=== PATIENT | female | born 1990 | race Caucasian/White ===

== ENCOUNTER 2020-05-27 13:54 | Inpatient (IN) ==
[2020-05-27] MEDS ORDERED: Piperacillin/Tazobactam 4.5 GM in Water for inj. (sterile) 20 ML IVP ONE (14:09)
[2020-05-27] MEDS ORDERED: Vancomycin 1,000 MG VIAL IVPB ONE (14:09)
[2020-05-27] MEDS ORDERED: 0.9 % Sodium Chloride 1,000 ML IVC ONE (14:12)
[2020-05-27] MEDS ORDERED: Piperacillin/Tazobactam 3.375 GM in 0.9 % Sodium Chloride Mini Bag 100 ML IVPB ONE (14:17)
[2020-05-27] MEDS ORDERED: Bupivacaine-MPF 0.25% 10 ML VIAL INFILT ONE (14:25)
[2020-05-27] MEDS ORDERED: Ibuprofen 800 MG TABLET PO ONE (14:25)
[2020-05-27 14:43] LABS: Basophils # 0.1 K/mcL (0.0-0.2); Basophils % 0.6 %; Hematocrit 39.1 % (35.3-44.9); Hemoglobin 12.7 g/dL (11.5-15.4); Immature Granulocytes % 0.4 % (0-4); Lymphocytes # 1.8 K/mcL (0.6-4.6); Lymphocytes % 21.7 %; Mean Corpuscular HGB Conc 32.5 g/dL (31.6-35.5); Mean Corpuscular Hemoglobin 30.2 pg (28.0-33.3); Mean Corpuscular Volume 93.1 fL (83.0-100.0); Mean Platelet Volume 9.6 fL (9.4-12.4); Monocytes % 12.4 %; Neutrophils # 5.4 K/mcL (1.6-8.9); Platelet Count 291 K/mcL (140-400); Prothrombin Time 11.3 Seconds (9.4-12.1); Red Cell Distribution Width 12.3 % (11.5-14.5); Segmented Neutrophils % 64.9 %; White Blood Count 8.3 K/mcL (4.3-11.1)
[2020-05-27] MEDS ORDERED: Vancomycin 1,500 MG/265 ML IV.SOLN IVPB ONE ×2 (14:50→15:00)
[2020-05-27 15:04] LABS: Alanine Aminotransferase 31 Units/L (7-52); Albumin 3.8 g/dL (3.5-5.7); Albumin/Globulin Ratio 1.2 (1.1-2.2); Alkaline Phosphatase 73 Units/L (34-104); Aspartate Amino Transferase 26 Units/L (13-39); BUN/Creatinine Ratio 27 (6-26); Bilirubin,Direct 0.1 mg/dL (0.0-0.2); Bilirubin,Indirect 0.3 mg/dL (0.0-1.0); Bilirubin,Total 0.4 mg/dL (0.3-1.0); Blood Urea Nitrogen 16 mg/dL (6-20); Calcium 9.9 mg/dL (8.6-10.3); Carbon Dioxide 29 mEq/L (23-29); Chloride 102 mEq/L (98-107); Globulin 3.3 g/dL (2.4-3.5); Glucose 97 mg/dL (70-105); Osmolality,Calculated 285 (280-300); Potassium 4.5 mEq/L (3.5-5.1); Sodium 137 mEq/L (136-145); Total Protein 7.1 g/dL (6.4-8.9); Troponin I < 0.03 ng/mL (< 0.04); eGFR For African Americans > 60 (> 60); eGFR For Non-African Americans > 60 (> 60)
[2020-05-27] MEDS ORDERED: Ondansetron 4 MG/2 ML VIAL IVP PRN (16:07)
[2020-05-27] MEDS ORDERED: Acetaminophen 325 MG TABLET PO PRN (16:07)
[2020-05-27] MEDS ORDERED: Naloxone 0.4 MG/ML INJ IVP PRN (16:07)
[2020-05-27 16:20] LABS: SARS-CoV-2 Not Detected (Not Detect)
[2020-05-27 16:21] LABS: Adenovirus Not Detected (Not Detect); Bordetella Pertussis Not Detected (Not Detect); Chlamydophila pneumoniae Not Detected (Not Detect); Coronavirus 229E Not Detected (Not Detect); Coronavirus HKU1 Not Detected (Not Detect); Coronavirus NL63 Not Detected (Not Detect); Coronavirus OC43 Not Detected (Not Detect); Human Metapneumovirus Not Detected (Not Detect); Human Rhinovirus/Enterovirus Not Detected (Not Detect); Influenza A Subtype 2009 H1 Not Detected (Not Detect); Influenza B Not Detected (Not Detect); Mycoplasma pneumoniae Not Detected (Not Detect); Parainfluenza Virus 1 Not Detected (Not Detect); Parainfluenza Virus 2 Not Detected (Not Detect); Parainfluenza Virus 3 Not Detected (Not Detect); Parainfluenza Virus 4 Not Detected (Not Detect); Respiratory Syncytial Virus Not Detected (Not Detect)
[2020-05-27 16:30] LABS: Bacteria,Urine Few per hpf (None-Few); Bilirubin,Urine Negative (Negative); Blood,Urine Negative (Negative); Clarity,Urine Turbid (Clear); Color,Urine Light-Yellow (Yellow); Glucose,Urine (UA) Normal (Normal); Ketones,Urine Negative (Negative); Leukocyte Esterase,Urine Small (Negative); Mucus,Urine Few per lpf (None-Few); Nitrite,Urine Negative (Negative); PH,Urine 6.5 pH Units (5.0-8.0); Protein,Urine Trace mg/dL (Neg-Trace); RBC,Urine 0-3 per hpf (0-3); Specific Gravity,Urine 1.025 (1.010-1.025); Squamous Epithelial Cell,Urine Moderate per hpf (None-Few); Urobilinogen,Urine Normal (Normal)
[2020-05-27 16:34] LABS: Amphetamine Screen,Urine Negative ng/mL (Cutoff=1000); Barbiturate Screen,Urine Negative ng/mL (Cutoff=200); Benzodiazepines Screen,Urine Negative ng/mL (Cutoff=200); Cannabinoid Screen,Urine Negative ng/mL (Cutoff = 50); Cocaine Screen,Urine Negative ng/mL (Cutoff= 300); Opiate Screen,Urine Negative ng/mL (Cutoff=300); Phencyclidine Screen,Urine Negative ng/mL (Cutoff=25)
[2020-05-27] MEDS: *HR* Heparin 5,000 UNIT/ML VIAL SQ SCH (21:08)
[2020-05-27] MEDS: Piperacillin/Tazobactam 3.375 GM in 0.9 % Sodium Chloride Mini Bag 100 ML IVPB SCH (23:27)
[2020-05-27] MEDS: *HR* HYDROcodone/Acet 5/325 mg TABLET PO PRN (23:27)
[2020-05-28] MEDS: *HR* Heparin 5,000 UNIT/ML VIAL SQ SCH ×3 (05:45→22:10)
[2020-05-28 06:15] LABS: Basophils # 0.1 K/mcL (0.0-0.2); Basophils % 0.8 %; Eosinophils # 0.2 K/mcL (0.0-0.6); Eosinophils % 2.3 %; Hematocrit 36.3 % (35.3-44.9); Hemoglobin 11.4 g/dL (11.5-15.4); Immature Granulocytes % 0.5 % (0-4); Lymphocytes # 2.4 K/mcL (0.6-4.6); Lymphocytes % 32.5 %; Mean Corpuscular HGB Conc 31.4 g/dL (31.6-35.5); Mean Corpuscular Hemoglobin 29.5 pg (28.0-33.3); Mean Corpuscular Volume 93.8 fL (83.0-100.0); Mean Platelet Volume 9.7 fL (9.4-12.4); Monocytes # 0.7 K/mcL (0.0-1.3); Platelet Count 230 K/mcL (140-400); Red Blood Count 3.87 M/mcL (3.82-4.97); Red Cell Distribution Width 12.3 % (11.5-14.5); Segmented Neutrophils % 53.9 %; White Blood Count 7.4 K/mcL (4.3-11.1)
[2020-05-28 06:35] LABS: BUN/Creatinine Ratio 29 (6-26); Blood Urea Nitrogen 17 mg/dL (6-20); Calcium 8.9 mg/dL (8.6-10.3); Carbon Dioxide 27 mEq/L (23-29); Chloride 106 mEq/L (98-107); Glucose 83 mg/dL (70-105); Magnesium 1.7 mg/dL (1.6-2.6); Osmolality,Calculated 287 (280-300); Potassium 4.5 mEq/L (3.5-5.1); Sodium 138 mEq/L (136-145); eGFR For African Americans > 60 (> 60); eGFR For Non-African Americans > 60 (> 60)
[2020-05-28] MEDS: *HR* HYDROcodone/Acet 5/325 mg TABLET PO PRN (06:49)
[2020-05-28] MEDS ORDERED: Nicotine 14 MG PATCH.TD24 TD SCH (09:00)
[2020-05-28] MEDS: Piperacillin/Tazobactam 3.375 GM in 0.9 % Sodium Chloride Mini Bag 100 ML IVPB SCH ×3 (09:31→23:29)
[2020-05-28] MEDS ORDERED: *HR* HYDROcodone/Acet 5/325 mg TABLET PO PRN (12:11)
[2020-05-28] MEDS ORDERED: Lidocaine/EPI 1:200k 1% PF 10 ML VIAL ONE (16:23)
[2020-05-28] MEDS ORDERED: *HR* FentaNYL (PF) 100 MCG/2 ML VIAL ONE (17:18)
[2020-05-28] MEDS ORDERED: Ondansetron 4 MG/2 ML VIAL ONE (17:18)
[2020-05-28] MEDS ORDERED: Lidocaine -MPF 2% 2 ML VIAL ONE (17:18)
[2020-05-28] MEDS ORDERED: Dexamethasone 4 MG/ML VIAL ONE (17:18)
[2020-05-28] MEDS ORDERED: *HR* Propofol 200 MG/20 ML VIAL IVP ONE (17:18)
[2020-05-28] MEDS ORDERED: *HR* Midazolam HCl 2 MG/2 ML VIAL ONE (17:18)
[2020-05-28] MEDS ORDERED: *HR* FentaNYL (PF) 100 MCG/2 ML VIAL IVP PRN ×2 (17:56→20:11)
[2020-05-28] MEDS ORDERED: Naloxone 0.4 MG/ML INJ IVP PRN ×3 (17:57→20:11)
[2020-05-28] MEDS ORDERED: Ondansetron 4 MG/2 ML VIAL IVP ONE ×2 (17:57→20:11)
[2020-05-28] MEDS ORDERED: Ringers Solution, Lactated 1,000 ML IVC SCH ×2 (18:00→20:11)
[2020-05-28] MEDS ORDERED: Ketorolac 30 MG/ML VIAL ONE (18:55)
[2020-05-28] MEDS: *HR* HYDROmorphone PF 0.5 MG/0.5 ML SYRINGE IVP PRN ×4 (19:25→19:41)
[2020-05-28] MEDS ORDERED: Acetaminophen 325 MG TABLET PO PRN (20:11)
[2020-05-28] MEDS ORDERED: Ondansetron 4 MG/2 ML VIAL IVP PRN (20:11)
[2020-05-29 02:52] LABS: Basophils % 0.5 %; Hematocrit 36.8 % (35.3-44.9); Hemoglobin 11.9 g/dL (11.5-15.4); Immature Granulocytes % 0.3 % (0-4); Mean Corpuscular HGB Conc 32.3 g/dL (31.6-35.5); Mean Corpuscular Hemoglobin 30.1 pg (28.0-33.3); Mean Corpuscular Volume 92.9 fL (83.0-100.0); Mean Platelet Volume 9.8 fL (9.4-12.4); Monocytes # 0.3 K/mcL (0.0-1.3); Monocytes % 4.5 %; Neutrophils # 4.4 K/mcL (1.6-8.9); Platelet Count 273 K/mcL (140-400); Red Blood Count 3.96 M/mcL (3.82-4.97); Red Cell Distribution Width 11.9 % (11.5-14.5); Segmented Neutrophils % 76.7 %; White Blood Count 5.7 K/mcL (4.3-11.1)
[2020-05-29 03:12] LABS: BUN/Creatinine Ratio 26 (6-26); Blood Urea Nitrogen 15 mg/dL (6-20); Calcium 8.9 mg/dL (8.6-10.3); Carbon Dioxide 27 mEq/L (23-29); Chloride 102 mEq/L (98-107); Glucose 164 mg/dL (70-105); Magnesium 1.8 mg/dL (1.6-2.6); Osmolality,Calculated 288 (280-300); Potassium 3.9 mEq/L (3.5-5.1); Sodium 137 mEq/L (136-145); eGFR For African Americans > 60 (> 60); eGFR For Non-African Americans > 60 (> 60)
[2020-05-29] MEDS: Vancomycin 1,500 MG/265 ML IV.SOLN IVPB SCH ×2 (04:03→17:02)
[2020-05-29] MEDS: *HR* Heparin 5,000 UNIT/ML VIAL SQ SCH ×3 (05:15→22:11)
[2020-05-29] MEDS: Piperacillin/Tazobactam 3.375 GM in 0.9 % Sodium Chloride Mini Bag 100 ML IVPB SCH ×3 (09:59→23:09)
[2020-05-29] MEDS: Nicotine 14 MG PATCH.TD24 TD SCH (10:00)
[2020-05-29] MEDS: *HR* HYDROcodone/Acet 5/325 mg TABLET PO PRN ×2 (15:46→22:10)
[2020-05-30] MEDS: Vancomycin 1,500 MG/265 ML IV.SOLN IVPB SCH ×2 (03:07→16:35)
[2020-05-30] MEDS: *HR* Heparin 5,000 UNIT/ML VIAL SQ SCH ×3 (05:43→20:56)
[2020-05-30 06:48] LABS: Basophils # 0.1 K/mcL (0.0-0.2); Basophils % 1.2 %; Eosinophils # 0.1 K/mcL (0.0-0.6); Eosinophils % 1.9 %; Immature Granulocytes % 0.7 % (0-4); Lymphocytes # 2.8 K/mcL (0.6-4.6); Lymphocytes % 48.5 %; Mean Corpuscular HGB Conc 32.4 g/dL (31.6-35.5); Mean Corpuscular Hemoglobin 30.2 pg (28.0-33.3); Mean Corpuscular Volume 93.4 fL (83.0-100.0); Mean Platelet Volume 9.7 fL (9.4-12.4); Monocytes # 0.6 K/mcL (0.0-1.3); Neutrophils # 2.2 K/mcL (1.6-8.9); Platelet Count 236 K/mcL (140-400); Red Blood Count 3.64 M/mcL (3.82-4.97); Red Cell Distribution Width 12.1 % (11.5-14.5); Segmented Neutrophils % 37.7 %; White Blood Count 5.8 K/mcL (4.3-11.1)
[2020-05-30 07:09] LABS: BUN/Creatinine Ratio 29 (6-26); Blood Urea Nitrogen 16 mg/dL (6-20); Calcium 8.6 mg/dL (8.6-10.3); Carbon Dioxide 27 mEq/L (23-29); Chloride 105 mEq/L (98-107); Glucose 88 mg/dL (70-105); Magnesium 1.6 mg/dL (1.6-2.6); Osmolality,Calculated 285 (280-300); Potassium 3.9 mEq/L (3.5-5.1); Sodium 137 mEq/L (136-145); eGFR For African Americans > 60 (> 60); eGFR For Non-African Americans > 60 (> 60)
[2020-05-30] MEDS: Piperacillin/Tazobactam 3.375 GM in 0.9 % Sodium Chloride Mini Bag 100 ML IVPB SCH (08:47)
[2020-05-30] MEDS: Nicotine 14 MG PATCH.TD24 TD SCH (08:48)
[2020-05-30] MEDS: *HR* HYDROcodone/Acet 5/325 mg TABLET PO PRN ×2 (13:46→21:28)
[2020-05-31] MEDS: Vancomycin 1,500 MG/265 ML IV.SOLN IVPB SCH ×2 (05:34→15:12)
[2020-05-31] MEDS: *HR* Heparin 5,000 UNIT/ML VIAL SQ SCH ×3 (05:38→21:23)
[2020-05-31] MEDS: Nicotine 14 MG PATCH.TD24 TD SCH (08:39)
[2020-05-31 11:23] LABS: Basophils # 0.1 K/mcL (0.0-0.2); Basophils % 1.1 %; Eosinophils % 0.6 %; Hematocrit 38.3 % (35.3-44.9); Hemoglobin 12.3 g/dL (11.5-15.4); Immature Granulocytes % 1.5 % (0-4); Lymphocytes # 1.6 K/mcL (0.6-4.6); Lymphocytes % 29.6 %; Mean Corpuscular HGB Conc 32.1 g/dL (31.6-35.5); Mean Corpuscular Hemoglobin 29.9 pg (28.0-33.3); Mean Corpuscular Volume 93.2 fL (83.0-100.0); Mean Platelet Volume 9.7 fL (9.4-12.4); Monocytes # 0.5 K/mcL (0.0-1.3); Monocytes % 9.9 %; Neutrophils # 3.1 K/mcL (1.6-8.9); Platelet Count 267 K/mcL (140-400); Red Blood Count 4.11 M/mcL (3.82-4.97); Red Cell Distribution Width 12.3 % (11.5-14.5); Segmented Neutrophils % 57.3 %; White Blood Count 5.3 K/mcL (4.3-11.1)
[2020-05-31 11:43] LABS: BUN/Creatinine Ratio 24 (6-26); Blood Urea Nitrogen 14 mg/dL (6-20); Calcium 9.5 mg/dL (8.6-10.3); Carbon Dioxide 31 mEq/L (23-29); Chloride 102 mEq/L (98-107); Glucose 99 mg/dL (70-105); Magnesium 1.7 mg/dL (1.6-2.6); Osmolality,Calculated 285 (280-300); Potassium 4.2 mEq/L (3.5-5.1); Sodium 137 mEq/L (136-145); eGFR For African Americans > 60 (> 60); eGFR For Non-African Americans > 60 (> 60)
[2020-05-31] MEDS: *HR* HYDROcodone/Acet 5/325 mg TABLET PO PRN ×2 (12:42→19:34)
[2020-06-01] MEDS: Vancomycin 1,500 MG/265 ML IV.SOLN IVPB SCH (04:39)
[2020-06-01] MEDS: *HR* Heparin 5,000 UNIT/ML VIAL SQ SCH (06:12)
[2020-06-01 06:27] LABS: Basophils # 0.1 K/mcL (0.0-0.2); Basophils % 1.2 %; Hematocrit 35.8 % (35.3-44.9); Hemoglobin 11.4 g/dL (11.5-15.4); Immature Granulocytes % 4.3 % (0-4); Lymphocytes # 2.5 K/mcL (0.6-4.6); Lymphocytes % 33.8 %; Mean Corpuscular HGB Conc 31.8 g/dL (31.6-35.5); Mean Corpuscular Volume 94.2 fL (83.0-100.0); Mean Platelet Volume 9.6 fL (9.4-12.4); Monocytes # 0.9 K/mcL (0.0-1.3); Monocytes % 11.8 %; Neutrophils # 3.6 K/mcL (1.6-8.9); Platelet Count 257 K/mcL (140-400); Red Cell Distribution Width 12.3 % (11.5-14.5); Segmented Neutrophils % 48.9 %; White Blood Count 7.3 K/mcL (4.3-11.1)
[2020-06-01 06:47] LABS: BUN/Creatinine Ratio 26 (6-26); Blood Urea Nitrogen 17 mg/dL (6-20); Calcium 8.7 mg/dL (8.6-10.3); Carbon Dioxide 31 mEq/L (23-29); Chloride 103 mEq/L (98-107); Glucose 91 mg/dL (70-105); Magnesium 1.6 mg/dL (1.6-2.6); Osmolality,Calculated 287 (280-300); Potassium 3.9 mEq/L (3.5-5.1); Sodium 138 mEq/L (136-145); eGFR For African Americans > 60 (> 60); eGFR For Non-African Americans > 60 (> 60)
[2020-06-01 07:50] VITALS: BP 109/73
[2020-06-01] MEDS: Doxycycline 100 MG CAPSULE PO SCH ×2 (08:11→09:28)
[2020-06-01] MEDS: Nicotine 14 MG PATCH.TD24 TD SCH (08:11)
[2020-06-01] MEDS: *HR* HYDROcodone/Acet 5/325 mg TABLET PO PRN (10:11)
== END 2020-06-01 11:43 | disposition home or self-care (01) | DRG 364 ==
LOC: SUATTDRO → 3ANU 13:54 → EMEROOARM 13:54 → SUATTDRO 16:34 → 3ANU 17:35
PROVIDERS: ADMIT Pharmacist; ATTEND Pharmacist

== ENCOUNTER 2020-06-04 16:22 | Observation (INO) ==
[2020-06-04] MEDS ORDERED: 0.9 % Sodium Chloride 1,000 ML IV ONE (17:53)
[2020-06-04] MEDS ORDERED: Piperacillin/Tazobactam 3.375 GM in 0.9 % Sodium Chloride Mini Bag 100 ML IVPB ONE (17:54)
[2020-06-04] MEDS ORDERED: Ziprasidone 20 MG in Water for inj. (sterile) 1 ML IM ONE (18:03)
[2020-06-04] MEDS ORDERED: *HR* LORazepam 2 MG/ML VIAL ONE (18:27)
[2020-06-04] MEDS ORDERED: *HR* LORazepam 2 MG/ML VIAL IM ONE (18:27)
[2020-06-04] MEDS ORDERED: *HR* LORazepam 2 MG/ML VIAL IM PRN (18:33)
[2020-06-04] MEDS ORDERED: Naloxone 0.4 MG/ML INJ IVP PRN (19:48)
[2020-06-04] MEDS: 0.9 % Sodium Chloride 1,000 ML IVC SCH (23:30)
[2020-06-05] MEDS: *HR* LORazepam 2 MG/ML VIAL IVP PRN ×2 (02:45→10:14)
[2020-06-05 05:04] LABS: Basophils # 0.1 K/mcL (0.0-0.2); Basophils % 1.1 %; Eosinophils % 0.1 %; Hematocrit 36.6 % (35.3-44.9); Hemoglobin 11.4 g/dL (11.5-15.4); Immature Granulocytes % 0.6 % (0-4); Lymphocytes # 1.9 K/mcL (0.6-4.6); Lymphocytes % 26.7 %; Mean Corpuscular HGB Conc 31.1 g/dL (31.6-35.5); Mean Corpuscular Hemoglobin 29.4 pg (28.0-33.3); Mean Corpuscular Volume 94.3 fL (83.0-100.0); Mean Platelet Volume 9.4 fL (9.4-12.4); Monocytes # 0.9 K/mcL (0.0-1.3); Monocytes % 12.1 %; Neutrophils # 4.2 K/mcL (1.6-8.9); Platelet Count 334 K/mcL (140-400); Red Blood Count 3.88 M/mcL (3.82-4.97); Red Cell Distribution Width 13.2 % (11.5-14.5); Segmented Neutrophils % 59.4 %
[2020-06-05 05:30] LABS: Alanine Aminotransferase 89 Units/L (7-52); Albumin 3.9 g/dL (3.5-5.7); Albumin/Globulin Ratio 1.4 (1.1-2.2); Alkaline Phosphatase 54 Units/L (34-104); Aspartate Amino Transferase 95 Units/L (13-39); BUN/Creatinine Ratio 32 (6-26); Bilirubin,Total 1.2 mg/dL (0.3-1.0); Blood Urea Nitrogen 26 mg/dL (6-20); Calcium 9.1 mg/dL (8.6-10.3); Carbon Dioxide 23 mEq/L (23-29); Chloride 107 mEq/L (98-107); Globulin 2.8 g/dL (2.4-3.5); Glucose 98 mg/dL (70-105); Osmolality,Calculated 295 (280-300); Potassium 3.5 mEq/L (3.5-5.1); Sodium 140 mEq/L (136-145); Total Protein 6.7 g/dL (6.4-8.9); eGFR For African Americans > 60 (> 60); eGFR For Non-African Americans > 60 (> 60)
[2020-06-05] MEDS ORDERED: *HR* LORazepam 2 MG/ML VIAL IVP ONE (06:16)
[2020-06-05] MEDS: Vancomycin 1,500 MG/265 ML IV.SOLN IVPB SCH ×2 (06:20→16:43)
[2020-06-05] MEDS: 0.9 % Sodium Chloride 1,000 ML IVC SCH ×2 (06:32→16:43)
[2020-06-05] MEDS: Piperacillin/Tazobactam 3.375 GM in 0.9 % Sodium Chloride Mini Bag 100 ML IVPB SCH ×2 (07:40→15:35)
[2020-06-05] MEDS ORDERED: Ketorolac 15 MG/ML VIAL IVP PRN (08:17)
[2020-06-05] MEDS ORDERED: Ziprasidone 10 MG in Water for inj. (sterile) 0.5 ML IM ONE (10:30)
[2020-06-05] MEDS ORDERED: Ziprasidone 20 MG in Water for inj. (sterile) 1 ML IM PRN (15:58)
[2020-06-05] MEDS: *HR* LORazepam 2 MG/ML VIAL IVP SCH ×2 (16:42→20:55)
[2020-06-05] MEDS ORDERED: QUEtiapine Fumarate 100 MG TABLET PO SCH (21:00)
[2020-06-06] MEDS: 0.9 % Sodium Chloride 1,000 ML IVC SCH ×2 (00:37→08:47)
[2020-06-06] MEDS: Piperacillin/Tazobactam 3.375 GM in 0.9 % Sodium Chloride Mini Bag 100 ML IVPB SCH ×3 (00:48→16:06)
[2020-06-06 06:05] LABS: Hematocrit 33.6 % (35.3-44.9); Hemoglobin 10.6 g/dL (11.5-15.4); Mean Corpuscular HGB Conc 31.5 g/dL (31.6-35.5); Mean Corpuscular Hemoglobin 29.7 pg (28.0-33.3); Mean Corpuscular Volume 94.1 fL (83.0-100.0); Mean Platelet Volume 9.7 fL (9.4-12.4); Platelet Count 282 K/mcL (140-400); Red Blood Count 3.57 M/mcL (3.82-4.97); White Blood Count 4.7 K/mcL (4.3-11.1)
[2020-06-06 06:26] LABS: BUN/Creatinine Ratio 20 (6-26); Blood Urea Nitrogen 13 mg/dL (6-20); Calcium 8.5 mg/dL (8.6-10.3); Carbon Dioxide 24 mEq/L (23-29); Chloride 109 mEq/L (98-107); Glucose 91 mg/dL (70-105); Osmolality,Calculated 288 (280-300); Potassium 3.7 mEq/L (3.5-5.1); Sodium 139 mEq/L (136-145); Vancomycin,Trough 6 mcg/mL (5-10); eGFR For African Americans > 60 (> 60); eGFR For Non-African Americans > 60 (> 60)
[2020-06-06] MEDS: Vancomycin 1,500 MG/265 ML IV.SOLN IVPB SCH (06:39)
[2020-06-06] MEDS: *HR* LORazepam 2 MG/ML VIAL IVP SCH ×2 (07:59→14:27)
[2020-06-06] MEDS: Vancomycin 1,250 MG/262.5 ML IV.SOLN IVPB SCH ×2 (09:54→16:05)
[2020-06-06 15:32] VITALS: BP 125/82
== END 2020-06-06 18:18 | disposition left against medical advice (07) ==
LOC: 3ANU 16:22 → EMEROOARM 16:22 → SUATTDRO 18:28 → 3ANU 20:12
PROVIDERS: ADMIT Internal Medicine; ATTEND Internal Medicine

== ENCOUNTER 2020-06-09 03:00 | Inpatient (IN) ==
[2020-06-09] MEDS ORDERED: Ziprasidone 20 MG in Water for inj. (sterile) 1 ML IM ONE (03:04)
[2020-06-09] MEDS ORDERED: 0.9 % Sodium Chloride 1,000 ML ONE (03:42)
[2020-06-09 04:17] LABS: Acetaminophen < 10 mcg/mL (10-20); Ethanol < 10 mg/dL (Less than 10); Salicylate < 2.5 mg/dL (15.0-30.0)
[2020-06-09] MEDS ORDERED: Naloxone 0.4 MG/ML INJ IVP PRN (04:53)
[2020-06-09] MEDS ORDERED: *HR* Promethazine 25 MG/ML VIAL IVP PRN (04:53)
[2020-06-09] MEDS ORDERED: 0.9 % Sodium Chloride 1,000 ML IVC SCH (05:00)
[2020-06-09 05:49] LABS: Basophils % 0.5 %; Hematocrit 35.5 % (35.3-44.9); Hemoglobin 11.5 g/dL (11.5-15.4); Immature Granulocytes % 0.3 % (0-4); Lymphocytes # 1.8 K/mcL (0.6-4.6); Mean Corpuscular HGB Conc 32.4 g/dL (31.6-35.5); Mean Corpuscular Hemoglobin 30.5 pg (28.0-33.3); Mean Corpuscular Volume 94.2 fL (83.0-100.0); Mean Platelet Volume 9.5 fL (9.4-12.4); Monocytes # 0.6 K/mcL (0.0-1.3); Monocytes % 7.3 %; Neutrophils # 5.3 K/mcL (1.6-8.9); Platelet Count 329 K/mcL (140-400); Red Blood Count 3.77 M/mcL (3.82-4.97); Segmented Neutrophils % 68.9 %; White Blood Count 7.7 K/mcL (4.3-11.1)
[2020-06-09 05:56] LABS: Prothrombin Time 11.7 Seconds (9.4-12.1)
[2020-06-09 06:09] LABS: Alanine Aminotransferase 49 Units/L (7-52); Albumin 4.1 g/dL (3.5-5.7); Albumin/Globulin Ratio 1.5 (1.1-2.2); Alkaline Phosphatase 66 Units/L (34-104); Aspartate Amino Transferase 38 Units/L (13-39); BUN/Creatinine Ratio 30 (6-26); Bilirubin,Total 0.9 mg/dL (0.3-1.0); Blood Urea Nitrogen 16 mg/dL (6-20); Calcium 9.6 mg/dL (8.6-10.3); Carbon Dioxide 24 mEq/L (23-29); Chloride 107 mEq/L (98-107); Globulin 2.8 g/dL (2.4-3.5); Glucose 92 mg/dL (70-105); Magnesium 1.9 mg/dL (1.6-2.6); Osmolality,Calculated 291 (280-300); Phosphorous 3.7 mg/dL (2.7-4.5); Potassium 3.1 mEq/L (3.5-5.1); Sodium 140 mEq/L (136-145); Total Protein 6.9 g/dL (6.4-8.9); eGFR For African Americans > 60 (> 60); eGFR For Non-African Americans > 60 (> 60)
[2020-06-09] MEDS: Vancomycin 1,250 MG/262.5 ML IV.SOLN IVPB SCH ×2 (08:01→15:16)
[2020-06-09] MEDS: Piperacillin/Tazobactam 3.375 GM in 0.9 % Sodium Chloride Mini Bag 100 ML IVPB SCH ×3 (08:01→23:47)
[2020-06-09] MEDS: Acetaminophen 325 MG TABLET PO PRN (12:10)
[2020-06-09 12:55] LABS: Amphetamine Screen,Urine Positive ng/mL (Cutoff=1000); Barbiturate Screen,Urine Negative ng/mL (Cutoff=200); Benzodiazepines Screen,Urine Negative ng/mL (Cutoff=200); Cannabinoid Screen,Urine Positive ng/mL (Cutoff = 50); Cocaine Screen,Urine Negative ng/mL (Cutoff= 300); Opiate Screen,Urine Negative ng/mL (Cutoff=300); Phencyclidine Screen,Urine Negative ng/mL (Cutoff=25)
[2020-06-09] MEDS ORDERED: *HR* LORazepam 2 MG/ML VIAL IVP ONE ×2 (13:24→18:09)
[2020-06-09] MEDS: Potassium Chloride Elixir 20 MEQ/15 ML UDC PO ONE ×2 (13:35→13:40)
[2020-06-09] MEDS ORDERED: Divalproex (12 HR) 500 MG TABLET PO ONE (14:33)
[2020-06-09] MEDS: Nicotine 21 MG PATCH.TD24 TD SCH (16:58)
[2020-06-09] MEDS: risperiDONE 1 MG TABLET PO SCH (17:11)
[2020-06-10] MEDS: Vancomycin 1,500 MG/265 ML IV.SOLN IVPB SCH ×4 (01:08→23:02)
[2020-06-10] MEDS ORDERED: *HR* LORazepam 2 MG/ML VIAL IVP ONE ×2 (08:42→14:03)
[2020-06-10] MEDS: Vancomycin 1,250 MG/262.5 ML IV.SOLN IVPB SCH (08:45)
[2020-06-10] MEDS: Piperacillin/Tazobactam 3.375 GM in 0.9 % Sodium Chloride Mini Bag 100 ML IVPB SCH ×3 (08:56→23:02)
[2020-06-10] MEDS: Nicotine 21 MG PATCH.TD24 TD SCH (08:58)
[2020-06-10] MEDS: Divalproex (12 HR) 500 MG TABLET PO SCH ×2 (08:58→23:02)
[2020-06-10] MEDS: risperiDONE 1 MG TABLET PO SCH ×2 (08:58→23:02)
[2020-06-10] MEDS ORDERED: Haloperidol Lactate 5 MG/ML VIAL IM ONE (13:55)
[2020-06-10] MEDS ORDERED: *HR* LORazepam 2 MG/ML VIAL ONE (14:04)
[2020-06-10] MEDS ORDERED: Haloperidol Lactate 5 MG/ML VIAL IM PRN (14:47)
[2020-06-10] MEDS ORDERED: *HR* LORazepam 2 MG/ML VIAL IM PRN (14:49)
[2020-06-11 01:12] LABS: Basophils % 0.8 %; Eosinophils # 0.1 K/mcL (0.0-0.6); Hematocrit 32.7 % (35.3-44.9); Hemoglobin 10.3 g/dL (11.5-15.4); Immature Granulocytes % 0.2 % (0-4); Lymphocytes # 2.2 K/mcL (0.6-4.6); Lymphocytes % 43.5 %; Mean Corpuscular HGB Conc 31.5 g/dL (31.6-35.5); Mean Corpuscular Hemoglobin 29.6 pg (28.0-33.3); Monocytes # 0.5 K/mcL (0.0-1.3); Monocytes % 10.1 %; Neutrophils # 2.2 K/mcL (1.6-8.9); Platelet Count 301 K/mcL (140-400); Red Blood Count 3.48 M/mcL (3.82-4.97); Red Cell Distribution Width 13.1 % (11.5-14.5); Segmented Neutrophils % 44.4 %
[2020-06-11 01:33] LABS: BUN/Creatinine Ratio 20 (6-26); Blood Urea Nitrogen 15 mg/dL (6-20); Calcium 8.8 mg/dL (8.6-10.3); Carbon Dioxide 25 mEq/L (23-29); Chloride 105 mEq/L (98-107); Glucose 128 mg/dL (70-105); Osmolality,Calculated 284 (280-300); Potassium 3.7 mEq/L (3.5-5.1); Sodium 136 mEq/L (136-145); eGFR For African Americans > 60 (> 60); eGFR For Non-African Americans > 60 (> 60)
[2020-06-11] MEDS: risperiDONE 1 MG TABLET PO SCH ×2 (10:33→22:15)
[2020-06-11] MEDS: Nicotine 21 MG PATCH.TD24 TD SCH (10:33)
[2020-06-11] MEDS: Divalproex (12 HR) 500 MG TABLET PO SCH ×2 (10:35→22:15)
[2020-06-11] MEDS: Vancomycin 1,500 MG/265 ML IV.SOLN IVPB SCH ×3 (10:36→23:30)
[2020-06-11] MEDS: Piperacillin/Tazobactam 3.375 GM in 0.9 % Sodium Chloride Mini Bag 100 ML IVPB SCH ×3 (10:37→23:31)
[2020-06-12 07:03] LABS: Basophils % 0.5 %; Eosinophils % 0.2 %; Hematocrit 37.4 % (35.3-44.9); Hemoglobin 11.7 g/dL (11.5-15.4); Immature Granulocytes % 0.4 % (0-4); Lymphocytes % 35.4 %; Mean Corpuscular HGB Conc 31.3 g/dL (31.6-35.5); Mean Corpuscular Hemoglobin 29.5 pg (28.0-33.3); Mean Corpuscular Volume 94.2 fL (83.0-100.0); Mean Platelet Volume 9.6 fL (9.4-12.4); Monocytes # 0.6 K/mcL (0.0-1.3); Monocytes % 10.7 %; Platelet Count 305 K/mcL (140-400); Red Blood Count 3.97 M/mcL (3.82-4.97); Red Cell Distribution Width 13.2 % (11.5-14.5); Segmented Neutrophils % 52.8 %; White Blood Count 5.6 K/mcL (4.3-11.1)
[2020-06-12 07:23] LABS: BUN/Creatinine Ratio 25 (6-26); Blood Urea Nitrogen 18 mg/dL (6-20); Calcium 9.7 mg/dL (8.6-10.3); Carbon Dioxide 27 mEq/L (23-29); Chloride 102 mEq/L (98-107); Glucose 101 mg/dL (70-105); Osmolality,Calculated 284 (280-300); Sodium 136 mEq/L (136-145); eGFR For African Americans > 60 (> 60); eGFR For Non-African Americans > 60 (> 60)
[2020-06-12] MEDS: Piperacillin/Tazobactam 3.375 GM in 0.9 % Sodium Chloride Mini Bag 100 ML IVPB SCH (07:30)
[2020-06-12] MEDS: Vancomycin 1,500 MG/265 ML IV.SOLN IVPB SCH (07:30)
[2020-06-12] MEDS: Acetaminophen 325 MG TABLET PO PRN (07:31)
[2020-06-12] MEDS: Nicotine 21 MG PATCH.TD24 TD SCH (08:57)
[2020-06-12] MEDS: risperiDONE 1 MG TABLET PO SCH (08:57)
[2020-06-12] MEDS: Divalproex (12 HR) 500 MG TABLET PO SCH (08:57)
[2020-06-12 11:22] VITALS: BP 119/76
== END 2020-06-12 12:15 | disposition home or self-care (01) | DRG 344 ==
LOC: EMEROOARM 03:00 → 3NENU 03:00 → SUATTDRO 04:11 → 3NENU 04:40
PROVIDERS: ADMIT Family Medicine; ATTEND Family Medicine

== ENCOUNTER 2020-06-13 14:29 | Observation (INO) ==
[2020-06-13] MEDS ORDERED: 0.9 % Sodium Chloride 1,000 ML IVC STA (15:19)
[2020-06-13] MEDS ORDERED: Ondansetron 4 MG/2 ML VIAL IVP PRN (16:39)
[2020-06-13] MEDS ORDERED: Naloxone 0.4 MG/ML INJ IVP PRN (16:39)
[2020-06-13] MEDS ORDERED: *HR* LORazepam 2 MG/ML VIAL IM PRN (17:27)
[2020-06-13] MEDS ORDERED: Haloperidol Lactate 5 MG/ML VIAL IM PRN (17:27)
[2020-06-13 18:40] LABS: Albumin/Globulin Ratio 1.6 (1.1-2.2); Bilirubin,Direct 0.1 mg/dL (0.0-0.2); Bilirubin,Indirect 0.5 mg/dL (0.0-1.0); Bilirubin,Total 0.6 mg/dL (0.3-1.0); Globulin 2.5 g/dL (2.4-3.5); Total Protein 6.5 g/dL (6.4-8.9)
[2020-06-13] MEDS: 0.9 % Sodium Chloride 1,000 ML IVC SCH (18:43)
[2020-06-13 22:07] LABS: Albumin 3.4 g/dL (3.5-5.7); Albumin/Globulin Ratio 1.5 (1.1-2.2); Bilirubin,Direct 0.1 mg/dL (0.0-0.2); Bilirubin,Indirect 0.3 mg/dL (0.0-1.0); Bilirubin,Total 0.4 mg/dL (0.3-1.0); Globulin 2.2 g/dL (2.4-3.5); Total Protein 5.6 g/dL (6.4-8.9)
[2020-06-14] MEDS: Piperacillin/Tazobactam 3.375 GM in 0.9 % Sodium Chloride Mini Bag 100 ML IVPB SCH ×3 (03:44→19:07)
[2020-06-14] MEDS: 0.9 % Sodium Chloride 1,000 ML IVC SCH ×2 (04:00→10:56)
[2020-06-14 09:51] LABS: Basophils % 0.5 %; Hematocrit 32.5 % (35.3-44.9); Hemoglobin 10.2 g/dL (11.5-15.4); Immature Granulocytes % 0.3 % (0-4); Lymphocytes # 1.4 K/mcL (0.6-4.6); Lymphocytes % 34.7 %; Mean Corpuscular HGB Conc 31.4 g/dL (31.6-35.5); Mean Corpuscular Hemoglobin 30.5 pg (28.0-33.3); Mean Corpuscular Volume 97.3 fL (83.0-100.0); Mean Platelet Volume 9.7 fL (9.4-12.4); Monocytes # 0.4 K/mcL (0.0-1.3); Monocytes % 10.1 %; Neutrophils # 2.2 K/mcL (1.6-8.9); Platelet Count 228 K/mcL (140-400); Red Blood Count 3.34 M/mcL (3.82-4.97); Red Cell Distribution Width 13.3 % (11.5-14.5); Segmented Neutrophils % 54.4 %
[2020-06-14 10:09] LABS: Alanine Aminotransferase 23 Units/L (7-52); Albumin/Globulin Ratio 1.5 (1.1-2.2); Alkaline Phosphatase 49 Units/L (34-104); Aspartate Amino Transferase 19 Units/L (13-39); BUN/Creatinine Ratio 12 (6-26); Bilirubin,Direct 0.1 mg/dL (0.0-0.2); Bilirubin,Indirect 0.3 mg/dL (0.0-1.0); Bilirubin,Total 0.4 mg/dL (0.3-1.0); Blood Urea Nitrogen 6 mg/dL (6-20); Calcium 8.6 mg/dL (8.6-10.3); Carbon Dioxide 29 mEq/L (23-29); Chloride 107 mEq/L (98-107); Glucose 120 mg/dL (70-105); Osmolality,Calculated 287 (280-300); Potassium 4.1 mEq/L (3.5-5.1); Sodium 139 mEq/L (136-145); Valproate 35 mcg/mL (50-100); eGFR For African Americans > 60 (> 60); eGFR For Non-African Americans > 60 (> 60)
[2020-06-14] MEDS ORDERED: 0.9 % Sodium Chloride 1,000 ML IVC SCH (10:48)
[2020-06-14] MEDS: Nicotine 21 MG PATCH.TD24 TD SCH (15:48)
[2020-06-15] MEDS ORDERED: Acetaminophen IV 500 MG/50 ML INFUS..BTL IVPB ONE (00:18)
[2020-06-15] MEDS: Piperacillin/Tazobactam 3.375 GM in 0.9 % Sodium Chloride Mini Bag 100 ML IVPB SCH ×2 (04:34→12:19)
[2020-06-15 06:04] LABS: Basophils % 0.4 %; Hemoglobin 10.5 g/dL (11.5-15.4); Immature Granulocytes % 0.2 % (0-4); Lymphocytes # 1.7 K/mcL (0.6-4.6); Lymphocytes % 33.1 %; Mean Corpuscular HGB Conc 31.8 g/dL (31.6-35.5); Mean Corpuscular Hemoglobin 29.8 pg (28.0-33.3); Mean Corpuscular Volume 93.8 fL (83.0-100.0); Mean Platelet Volume 9.5 fL (9.4-12.4); Monocytes # 0.6 K/mcL (0.0-1.3); Monocytes % 12.4 %; Neutrophils # 2.7 K/mcL (1.6-8.9); Platelet Count 237 K/mcL (140-400); Red Blood Count 3.52 M/mcL (3.82-4.97); Red Cell Distribution Width 13.2 % (11.5-14.5); Segmented Neutrophils % 53.9 %
[2020-06-15 06:40] LABS: BUN/Creatinine Ratio 24 (6-26); Blood Urea Nitrogen 16 mg/dL (6-20); Carbon Dioxide 27 mEq/L (23-29); Chloride 104 mEq/L (98-107); Glucose 97 mg/dL (70-105); Osmolality,Calculated 285 (280-300); Potassium 3.9 mEq/L (3.5-5.1); Sodium 137 mEq/L (136-145); eGFR For African Americans > 60 (> 60); eGFR For Non-African Americans > 60 (> 60)
[2020-06-15] MEDS: Vancomycin 1,250 MG/262.5 ML IV.SOLN IVPB SCH ×2 (09:06→18:44)
[2020-06-15] MEDS: Nicotine 21 MG PATCH.TD24 TD SCH (09:07)
[2020-06-15 11:33] VITALS: BP 143/82
== END 2020-06-15 18:52 | disposition left against medical advice (07) ==
LOC: EMEROOARM 14:29 → 3BNU 14:29 → SUATTDRO 16:52 → 3BNU 17:39
PROVIDERS: ADMIT Pharmacist; ATTEND Nurse Practitioner Adult Health

== ENCOUNTER 2020-08-14 10:44 | Inpatient (IN) ==
[2020-08-14] MEDS ORDERED: MOM Conc 10 ML UD.LIQ PO PRN (14:13)
[2020-08-14] MEDS ORDERED: Mag Hydrox/Al Hydrox/Simeth 30 ML UDC PO PRN (14:13)
[2020-08-14] MEDS ORDERED: *HR* LORazepam 2 MG/ML VIAL IM PRN (14:13)
[2020-08-14] MEDS ORDERED: Ibuprofen 400 MG TABLET PO PRN (14:13)
[2020-08-14] MEDS ORDERED: Haloperidol Lactate 5 MG/ML VIAL IM PRN (14:13)
[2020-08-14] MEDS: haloperidoL 5 MG TABLET PO PRN (17:18)
[2020-08-14] MEDS: *HR* LORazepam 1 MG TABLET PO PRN (17:18)
[2020-08-14] MEDS: hydrALAZINE 25 MG TABLET PO SCH (18:12)
[2020-08-14] MEDS: hydrOXYzine pamoate 25 MG CAPSULE PO PRN (19:34)
[2020-08-14] MEDS: Melatonin 3 MG TABLET PO SCH (19:34)
[2020-08-14] MEDS ORDERED: traZODone 50 MG TABLET PO SCH (21:00)
[2020-08-15] MEDS: hydrALAZINE 25 MG TABLET PO SCH ×2 (01:15→05:37)
[2020-08-15] MEDS: Nicotine 21 MG PATCH.TD24 TD SCH (08:19)
[2020-08-15] MEDS: hydrOXYzine pamoate 25 MG CAPSULE PO PRN ×2 (11:25→22:27)
[2020-08-15] MEDS: Melatonin 3 MG TABLET PO SCH (20:44)
[2020-08-15] MEDS ORDERED: QUEtiapine Fumarate 25 MG TABLET PO SCH (21:00)
[2020-08-16] MEDS: hydrOXYzine pamoate 25 MG CAPSULE PO PRN (03:58)
[2020-08-16] MEDS: *HR* LORazepam 1 MG TABLET PO PRN (07:10)
[2020-08-16] MEDS: haloperidoL 5 MG TABLET PO PRN (07:10)
[2020-08-16] MEDS: Nicotine 21 MG PATCH.TD24 TD SCH (08:36)
[2020-08-16] MEDS ORDERED: QUEtiapine Fumarate 100 MG TABLET PO SCH (21:00)
[2020-08-16] MEDS: Melatonin 3 MG TABLET PO SCH (21:13)
[2020-08-17] MEDS: hydrOXYzine pamoate 25 MG CAPSULE PO PRN ×2 (03:40→14:12)
[2020-08-17] MEDS: Nicotine 21 MG PATCH.TD24 TD SCH (10:11)
[2020-08-17] MEDS: QUEtiapine Fumarate 100 MG TABLET PO SCH (10:11)
[2020-08-17] MEDS: Divalproex (12 HR) 250 MG TABLET PO SCH ×2 (10:11→21:13)
[2020-08-17] MEDS: Melatonin 3 MG TABLET PO SCH (21:02)
[2020-08-17] MEDS: QUEtiapine Fumarate 300 MG TABLET PO SCH (21:02)
[2020-08-18] MEDS: QUEtiapine Fumarate 100 MG TABLET PO SCH (08:59)
[2020-08-18] MEDS: Divalproex (12 HR) 250 MG TABLET PO SCH ×2 (09:04→21:04)
[2020-08-18] MEDS: Nicotine 21 MG PATCH.TD24 TD SCH (09:19)
[2020-08-18 18:45] LABS: Adenovirus Not Detected (Not Detect); Bordetella Pertussis Not Detected (Not Detect); Chlamydophila pneumoniae Not Detected (Not Detect); Coronavirus 229E Not Detected (Not Detect); Coronavirus HKU1 Not Detected (Not Detect); Coronavirus NL63 Not Detected (Not Detect); Coronavirus OC43 Not Detected (Not Detect); Human Metapneumovirus Not Detected (Not Detect); Human Rhinovirus/Enterovirus Not Detected (Not Detect); Influenza A Subtype 2009 H1 Not Detected (Not Detect); Influenza B Not Detected (Not Detect); Mycoplasma pneumoniae Not Detected (Not Detect); Parainfluenza Virus 1 Not Detected (Not Detect); Parainfluenza Virus 2 Not Detected (Not Detect); Parainfluenza Virus 3 Not Detected (Not Detect); Parainfluenza Virus 4 Not Detected (Not Detect); Respiratory Syncytial Virus Not Detected (Not Detect); SARS-CoV-2 Not Detected (Not Detect)
[2020-08-18] MEDS: Melatonin 3 MG TABLET PO SCH (21:05)
[2020-08-18] MEDS: QUEtiapine Fumarate 300 MG TABLET PO SCH (21:06)
[2020-08-19] MEDS: QUEtiapine Fumarate 100 MG TABLET PO SCH (09:00)
[2020-08-19] MEDS: Divalproex (12 HR) 250 MG TABLET PO SCH ×2 (09:00→20:49)
[2020-08-19] MEDS: Nicotine 21 MG PATCH.TD24 TD SCH ×2 (10:09→10:44)
[2020-08-19] MEDS: Melatonin 3 MG TABLET PO SCH (20:49)
[2020-08-19] MEDS: QUEtiapine Fumarate 300 MG TABLET PO SCH (20:50)
[2020-08-20 09:10] VITALS: BP 115/77
[2020-08-20] MEDS: QUEtiapine Fumarate 100 MG TABLET PO SCH (09:25)
[2020-08-20] MEDS: Nicotine 21 MG PATCH.TD24 TD SCH (09:25)
[2020-08-20] MEDS: Divalproex (12 HR) 250 MG TABLET PO SCH (11:07)
== END 2020-08-20 14:30 | DRG 750 ==
LOC: 1ANU 10:44 → EMEROOARM 10:44 → 1ANU 15:20
PROVIDERS: ADMIT Psychiatry & Neurology Psychiatry; ATTEND Psychiatry & Neurology Psychiatry